=== PATIENT | male | born 1980 | race Caucasian/White ===

== ENCOUNTER 2017-08-02 00:31 | Emergency (ER) | payer OTHER ==
[~2017-08-02] VITALS: Ht 180.3 cm; Wt 99.8 kg
[~2017-08-02 00:31] MED LIST: AMOXICILLIN 50500 MG PO; CLARITIN10 M2 PO; EXCEDRIN CAPLE1 EACH PO; FLAGYL500 MG PO; HYDROCODONE-AP1 EAC6 PO; HYDROCODONE-APA1 TA1 PO; IBUPROFEN 600600 M1 PO; IBUPROFEN 800800 MG PO; KEFLEX250 MG PO; KEFLEX500 MG PO; MEDROLDOSEPACK PO; NAPROSYN500 MG PO; NOHOMEMEDICATIONS; NORCO 5-325 TA1 EACH PO; OXYCODON-ACETA1 EAC1 PO; PENICILLIN VK250 MG PO; PERCOCET 5-3251 EACH PO; PERIDEX 0.12%473 M1 SWISH&SPIT; SKELAXIN 800 M800 M1 PO; SUDAFED 12 HOU120 MG PO; TRAMADOL 50 MG50 MG PO; ULTRAM 50MG TAB50 MG PO; ZANAFLEX4 MG PO
[2017-08-02] MEDS ORDERED: TRAMADOL 50 MG50 MG (00:41)
[2017-08-02] MEDS ORDERED: PENICILLIN V P500 MG PO (00:53)
[2017-08-02] MEDS ORDERED: NORCO 5-325 TA1 EACH PO (00:53)
[2017-08-02 01:10] VITALS: BP 132/79
== END 2017-08-02 01:12 | disposition home or self-care (01) ==
LOC: M.ERS 00:31
DX: K02.9 Dental caries, unspecified (principal); M54.30 Sciatica, unspecified side; F17.210 Nicotine dependence, cigarettes, uncomplicated